=== PATIENT | female | born 1975 | race Caucasian/White ===

== ENCOUNTER 2022-12-03 01:15 | Emergency (ER) | payer BC, SELFPAY ==
[2022-12-03 01:20] VITALS: BP 131/83; PULSE 52; RESP 16; TEMP 36.8; O2SAT 99; BMI 39.8
--- NOTE | 2022-12-03 01:57 | ED.GENADUL1 ---
HPI - General Adult General Chief complaint: Recheck/Abnormal Lab/Rx Stated complaint: COLOSTOMY BAG WILL NOT SEAL Time Seen by Provider: 12/03/22 01:17 Source: patient Mode of arrival: walk-in History of Present Illness HPI narrative: 47-year-old female to the emergency department with chief complaint of difficulty replacing her colostomy bag. Patient reports she had surgery for a abdominal mass one and a half weeks ago. She reports that the colostomy nurse was on vacation she received very little education on how to manage her colostomy bag. She has used all of her supplies tonight trying to replace the colostomy because it was leaking. She cannot get a good seal and leaked stool. She is otherwise at her baseline health and has no complaints. The surgery was performed at [facility] with Related Data Home Medications Medication Instructions Recorded Confirmed glipizide 5 mg tablet mg 12/03/22 hydrocodone 5 mg-acetaminophen 325 tab 12/03/22 mg tablet levothyroxine 50 mcg tablet mcg 12/03/22 (Synthroid) lisinopril 20 mg tablet mg 12/03/22 metoprolol tartrate 25 mg tablet mg 12/03/22 sitagliptin phosphate 50 tab 12/03/22 mg-metformin 1,000 mg tablet (Janumet) Allergies Allergy/AdvReac Type Severity Reaction Status Date / Time No Known Drug Allergies Allergy Verified 12/03/22 01:23 Review of Systems ROS Status of ROS 10 or more systems reviewed and unremarkable except as noted in history and below PFSH PFSH Social History Smoking status: Never smoker Exam Narrative Exam Narrative: VITALS: I have reviewed the triage vital signs. GENERAL: Well developed, well appearing adult in no acute distress. NEURO: Alert and oriented. Moves all extremities. Face is symmetric and expressive. EYES: PERRL. No scleral icterus or conjunctival injection. No discharge. HENT: Normocephalic, atraumatic. Hearing is grossly intact. Nares grossly patent and without discharge. Mucous membranes moist. NECK: No JVD. Patient moves neck without restriction. GI/: Abdomen is soft and non-tender. Last right midabdomen. Mucosa appears pink and healthy. Is not adhering to her skin on the 2-5pm margin. EXTREMITIES: Symmetric muscle bulk. No joint swelling. No clubbing, cyanosis, or deformity. SKIN: Warm and dry. Normal turgor. No rash or lesions appreciated. PSYCH: Mood, affect, and interaction is appropriate to the setting. Constitutional Vital Signs, click to edit/add: Last Vital Signs Temp 98.3 F 12/03/22 01:20 Pulse 52 L 12/03/22 01:20 Resp 16 12/03/22 01:20 BP 131/83 12/03/22 01:20 Pulse Ox 99 12/03/22 01:20 O2 Del Method Room Air 12/03/22 01:20 Course Vital Signs Vital signs: Vital Signs Temperature 98.3 F 12/03/22 01:20 Pulse Rate 52 L 12/03/22 01:20 Respiratory Rate 16 12/03/22 01:20 Blood Pressure 131/83 12/03/22 01:20 Pulse Oximetry 99 12/03/22 01:20 Oxygen Delivery Method Room Air 12/03/22 01:20 Temperature 98.3 F 12/03/22 01:20 Pulse Rate 52 L 12/03/22 01:20 Respiratory Rate 16 12/03/22 01:20 Blood Pressure 131/83 12/03/22 01:20 Pulse Oximetry 99 12/03/22 01:20 Oxygen Delivery Method Room Air 12/03/22 01:20 Medical Decision Making MDM Narrative Medical decision making narrative: Colostomy difficulties otherwise at baseline health. Vital stable. Colostomy education given by nurse. Supp Discharge Plan Discharge Chief Complaint: Recheck/Abnormal Lab/Rx Clinical Impression: Encounter for wound re-check Prescriptions / Home Meds: No Action hydrocodone-acetaminophen 5-325 mg tablet lisinopril 20 mg tablet levothyroxine [Synthroid] 50 mcg tablet glipizide 5 mg tablet metoprolol tartrate 25 mg tablet Patient Comments: didnt take this week due to low bp Janumet 50-1,000 mg tablet Referrals: Physician,Non-Staff, MD [Primary Care Provider] - 1 week
== END 2022-12-03 02:41 | disposition home or self-care (01) ==
PROVIDERS: Emergency Provider Student in an Organized Health Care Education/Training Program
DX: Z43.3 Encounter for attention to colostomy (principal); Z79.84 Long term (current) use of oral hypoglycemic drugs; Z79.899 Other long term (current) drug therapy; Z79.890 Hormone replacement therapy
CPT/HCPCS: 99282